=== PATIENT | male | born 1945 | race Asian ===

== ENCOUNTER 2016-12-04 14:56 | Inpatient (IN) | payer SELFPAY ==
[2016-11-29 14:55] LABS: HEMATOCRIT 34.7 % (40.0-51.0); HEMOGLOBIN 10.6 g/dL (13.6-17.8)
--- NOTE | ~2016-12-04 | OP ---
Record Of Operation [facility] [address] [place]. [address] NAME: LIYAH FARRELL : 47 STATUS : ADM IN PAT#: [id number] AGE: 70 ADM/REG DATE : 12/04/16 MR#: [id number] REPORT SERV DATE: 12/05/16 DICTATED BY: JUANJO PATEL III DATE: 12/05/16 REPORT STATUS : Draft TRANSCRIBED BY: MODMitali DATE: 12/05/16 DATE OF PROCEDURE: 12/05/2016 PROCEDURE: Right percutaneous nephrostolithotomy. PREOPERATIVE DIAGNOSIS: Right renal calculus. POSTOPERATIVE DIAGNOSIS: Right renal calculus. ANESTHESIA: General. SURGEON: Juanoj Patel M.D. DESCRIPTION OF PROCEDURE: Following induction of adequate general anesthesia, the patient was placed in the prone position. After all pressure points were padded, the extremities were extended. The arms were extended taking care to pad the shoulders and the neck. He was then prepped and draped. Through the indwelling nephrostomy tube, we did a retrograde showing a large filling defect. Superstiff wire was placed over the indwelling pigtail and indwelling ureteral catheter. A Brenda catheter was then placed and a second Superstiff was placed. An incision was made. The system was opacified and the pigtail removed. The balloon was placed inside the lower pole calyx and inflated and the sheath went in fairly easily and I was immediately looking at the stone. The stone was initially hard to fragment, however, he had a number of fragments that were vacuumed out of the renal pelvis. Gradually, the stone was broken down and several large fragments dropped down into the UPJ. This was a fairly acute angle but I was able to get down and bring them up and either pull them out or fragment them. I got the last visible fragment out of the renal pelvis. Examined the upper and middle pole calices. The one middle pole calyx I could not make the turn with the flexible scope. No stones were noted. The flexible cystoscope actually was placed almost all the way to the bladder with an obtuse 2 to 3 cm. No stones were noted. It was actually widely dilated. Next a retrograde was done showing no extravasation. A double-J stent was placed over a wire and a loop was left in the kidney and a loop in the bladder. Next a nephrostomy tube of 20-[place] was placed into the renal pelvis and inflated with 4.5 mL. A retrograde showed to be in good position. It was secured with 2 silk sutures and 1 extra suture was used to close the skin. The patient tolerated the procedure well. The final Superstiff wire, all wires were removed and a bulky dressing applied. The EBL was approximately 200 to 300. We will check an H and H in the recovery room and in the a.m. OB/MODL Juanjo Patel III, M.D. / [id number] Record Of [address] [address] NAME: LIYAH FARRELL : 47 STATUS : ADM IN LOCATED WITHIN [facility]#: [id number] AGE: 70 ADM/REG DATE : 12/04/16 MR#: [id number] REPORT SERV DATE: 12/05/16 DICTATED BY: JUANJO PATEL III DATE: 12/05/16 REPORT STATUS : Draft TRANSCRIBED BY: MODL DATE: 12/05/16 CC: Debbie Jennings III, MD
--- NOTE | ~2016-12-04 | DS ---
Discharge Summary [facility] [address] [facility] [place]. [address] NAME: LIYAH RODRÍGUEZ : 47 STATUS : ADM IN PAT#: [id number] AGE: 70 ADM/REG DATE : 12/04/16 MR#: [id number] REPORT SERV DATE: 12/08/16 DICTATED BY: JUANJO PATEL III DATE: 12/07/16 REPORT STATUS : Draft TRANSCRIBED BY: MODL DATE: 12/07/16 ADMISSION DATE: 12/04/2016 DISCHARGE DATE: DISCHARGE DIAGNOSIS: Right nephrolithiasis. PROCEDURE: Right percutaneous nephrostolithotomy. HISTORY: Mr. Rodríguez is a 70-year-old, [place] male, who has had a large stone in the right kidney for a number of years and began to have gross hematuria and pain. He was admitted for percutaneous nephrostolithotomy. His past medical history includes hypertension and stones. He has had a lithotripsy years ago. He has had no other surgery. He does not take lisinopril and has no allergies. He does not smoke or drink. He has no cardiac issues. REVIEW OF SYSTEMS: Unremarkable. HOSPITAL COURSE: The patient was taken to the operating room on 12/05/2016. Percutaneous procedure was done. He tolerated the procedure well. He had a fair amount of bleeding. His hemoglobin dropped from 11 to 10.6, but was stable. He was not symptomatic. His tube was clamped on 12/06/2016. He tolerated this well. The tube was removed on the 12/07/2016. His catheter will be removed today and if he voids well without problems today, we will discharge him home with a catheter being removed in 7 to 10 days. OB/MODL Juanjo Patel III, M.D. / [id number] CC: Debbie Jennings III, MD
--- NOTE | ~2016-12-04 | HP ---
History And Physical [place] [address] [facility] [place]. [address] NAME: LIYAH FARRELL : 47 STATUS : REG REF PAT#: [id number] AGE: 70 ADM/REG DATE : 12/04/16 MR#: [id number] REPORT SERV DATE: 12/05/16 DICTATED BY: JUANJO PATEL III DATE: 12/04/16 REPORT STATUS : Draft TRANSCRIBED BY: DORIAN DATE: 12/04/16 DATE OF ADMISSION: 12/04/2016 REASON FOR ADMISSION: Right renal calculus. HISTORY OF PRESENT ILLNESS: Patient is an [place] male, age 70. He has had a 2 cm stone thought to be in the right ureter for several years and refused treatment. He began having gross hematuria and flank pain; and a CT was done showing a 2 cm stone in the right renal pelvis, there was actually not much in the way. The pelvis was generous, but it was more of an extrarenal pelvis. Patient has had no fever or chills. His culture was negative from last week. His only medication was lisinopril for hypertension. He had a lithotripsy in 2007, but cannot remember exactly where or which side. FAMILY HISTORY: Unremarkable. SOCIAL HISTORY: He is , has six children. Does not smoke. Does not drink. REVIEW OF SYSTEMS: He denies chest pain, shortness of breath, GI complaints. He does have some back pain. He has had no weight loss. PHYSICAL EXAMINATION: GENERAL: He is alert and oriented. Mood and affect are normal. HEENT: Unremarkable. NECK: Supple. LUNGS: Clear. CARDIOVASCULAR: He had a regular rate and rhythm without murmur or gallop. There was no tenderness in either flank. His external genitalia and prostate had been examined previously. IMPRESSION: A sizable stone. I explained risks and complications of a percutaneous procedure to the son who conveyed it to the father along with the failure to access the stone with need for additional procedures, bleeding, infection, potential loss of kidney, which would be pretty fairly rare, and need for additional procedures. He will have a nephrostomy tube placed the day before the procedure and we will do the procedure in the operating room the following day. OB/MODL Juanjo Patel III, M.D. / [id number] History And Physical [address] [address] NAME: LIYAH FARRELL : 47 STATUS : REG REF PAT#: [id number] AGE: 70 ADM/REG DATE : 12/04/16 MR#: [id number] REPORT SERV DATE: 12/05/16 DICTATED BY: JUANJO PATEL III DATE: 12/04/16 REPORT STATUS : Draft TRANSCRIBED BY: MODL DATE: 12/04/16 CC: Juanjo Patel III, M.D.
[2016-12-04 13:03] LABS: HEMATOCRIT 35.3 % (40.0-51.0); PLATELET COUNT 247 10/3/uL (150-400)
[2016-12-04 13:10] LABS: INTERNATIONAL NORMAL RATI 1.1 UNITS (-); PARTIAL THROMBO TIME 32.9 SEC (22.5-37.2); PROTIME (NOT ORD) 14.5 SEC (12.0-14.5)
[2016-12-04 13:17] LABS: BUN (BLOOD UREA NITROGEN) 14 MG/DL (6-23); CHLORIDE, SERUM 105 MMOL/L (96-112); CO2 (CARBON DIOXIDE) 29 MMOL/L (24-34); CREATININE 1.07 MG/DL (0.70-1.30); GFR AFRICAN AMERICAN 82 ML/MIN (>=60); GFR NON AFRICAN AMERICAN 70 ML/MIN (>=60); GLUCOSE, SERUM 93 MG/DL (60-99); POTASSIUM, SERUM 4.1 MMOL/L (3.5-5.3); SODIUM, SERUM 140 MMOL/L (135-148)
[~2016-12-04 14:56] MED LIST: *DENIES; LEVAQUIN750 MG PO; NORCO1 TA1 PO; PRINZIDE1 TAB PO
[2016-12-05 03:50] LABS: HEMATOCRIT 32.3 % (40.0-51.0); HEMOGLOBIN 10.1 g/dL (13.6-17.8); MANUAL DIFF YES %; MEAN CORPUS HGB CONC 31.3 g/dL (32.0-36.0); MEAN CORPUSCULAR HEMOGLOB 24.8 pg (26.0-34.0); MEAN CORPUSCULAR VOLUME 79.2 fL (80-100); MEAN PLATELET VOLUME 8.3 fL (9.2-13.0); PLATELET COUNT 213 10/3/uL (150-400); RBC DISTRIBUTION WIDTH 17.4 % (12.0-16.0); RED CELL COUNT 4.08 10/6/uL (4.7-6.1); WHITE BLOOD CELLS 13.6 10/3/uL (4.5-10.5)
[2016-12-05 04:08] LABS: EOSINOPHILS 2 %; EOSINOPHILS ABSOLUTE (CALC) 0.27 10/3/uL (0.0-0.53); LYMPHOCYTES 62 %; LYMPHOCYTES ABSOLUTE (CALC) 8.43 10/3/uL (0.67-4.30); MONOCYTES 1 %; MONOCYTES ABSOLUTE (CALC) 0.14 10/3/uL (0.21-1.20); NEUTROPHILS ABSOLUTE (CALC) 4.76 10/3/uL (2.02-8.40); PLATELET ESTIMATE ADQ (ADEQUATE); SEGMENTED NEUTROPHIL (0) 35 %; TOTAL NUCLEATED CELLS 100
[2016-12-05 04:09] LABS: RBC MORPHOLOGY NORM (NORMAL)
[2016-12-05 16:55] LABS: HEMATOCRIT 32.6 % (40.0-51.0); HEMOGLOBIN 10.1 g/dL (13.6-17.8)
[2016-12-06 05:59] LABS: HEMOGLOBIN 9.8 g/dL (13.6-17.8); MEAN CORPUS HGB CONC 30.6 g/dL (32.0-36.0); MEAN CORPUSCULAR HEMOGLOB 24.4 pg (26.0-34.0); MEAN CORPUSCULAR VOLUME 79.8 fL (80-100); MEAN PLATELET VOLUME 8.5 fL (9.2-13.0); PLATELET COUNT 207 10/3/uL (150-400); RBC DISTRIBUTION WIDTH 17.6 % (12.0-16.0); RED CELL COUNT 4.01 10/6/uL (4.7-6.1); WHITE BLOOD CELLS 13.1 10/3/uL (4.5-10.5)
[2016-12-06 06:02] LABS: MANUAL DIFF YES %
[2016-12-06 06:12] LABS: CALCIUM, SERUM 8.3 MG/DL (8.5-10.4); CHLORIDE, SERUM 109 MMOL/L (96-112); CREATININE 0.84 MG/DL (0.70-1.30); GFR AFRICAN AMERICAN 104 ML/MIN (>=60); GFR NON AFRICAN AMERICAN 89 ML/MIN (>=60); GLUCOSE, SERUM 108 MG/DL (60-99); POTASSIUM, SERUM 3.9 MMOL/L (3.5-5.3); SODIUM, SERUM 139 MMOL/L (135-148)
[2016-12-06 06:14] LABS: BUN (BLOOD UREA NITROGEN) 7 MG/DL (6-23); CO2 (CARBON DIOXIDE) 23 MMOL/L (24-34)
[2016-12-06 06:50] LABS: BAND NEUTROPHILS 1 %; BASOPHILS 1 %; BASOPHILS ABSOLUTE (CALC) 0.13 10/3/uL (0.0-0.16); EOSINOPHILS 1 %; EOSINOPHILS ABSOLUTE (CALC) 0.13 10/3/uL (0.0-0.53); IMMATURE GRANS ABSOLUTE (CALC) 0.13 10/3/uL (0.0-0.11); LYMPHOCYTES 58 %; METAMYELOCYTES 1 %; MONOCYTES 2 %; MONOCYTES ABSOLUTE (CALC) 0.26 10/3/uL (0.21-1.20); NEUTROPHILS ABSOLUTE (CALC) 4.85 10/3/uL (2.02-8.40); SEGMENTED NEUTROPHIL (0) 36 %; TOTAL NUCLEATED CELLS 100
[2016-12-06 06:52] LABS: SMUDGE CELLS RARE
[2016-12-06 06:53] LABS: ANISOCYTOSIS 1+ (5-10/OIF) (0-5/OIF); PLATELET ESTIMATE ADQ (ADEQUATE); POLYCHROMASIA 1+ (2-5/OIF) (0-1/OIF)
[2016-12-06 16:13] LABS: HEMATOCRIT 30.7 % (40.0-51.0); HEMOGLOBIN 9.6 g/dL (13.6-17.8)
[2016-12-08 09:44] LABS: HEMATOCRIT 33.5 % (40.0-51.0); HEMOGLOBIN 10.5 g/dL (13.6-17.8); MEAN CORPUS HGB CONC 31.3 g/dL (32.0-36.0); MEAN CORPUSCULAR HEMOGLOB 24.9 pg (26.0-34.0); MEAN CORPUSCULAR VOLUME 79.4 fL (80-100); MEAN PLATELET VOLUME 8.6 fL (9.2-13.0); PLATELET COUNT 216 10/3/uL (150-400); RBC DISTRIBUTION WIDTH 17.9 % (12.0-16.0); RED CELL COUNT 4.22 10/6/uL (4.7-6.1); WHITE BLOOD CELLS 15.5 10/3/uL (4.5-10.5)
[2016-12-08 09:49] LABS: MANUAL DIFF YES %
[2016-12-08 10:16] LABS: LYMPHOCYTES 73 %; LYMPHOCYTES ABSOLUTE (CALC) 11.32 10/3/uL (0.67-4.30); MONOCYTES 3 %; MONOCYTES ABSOLUTE (CALC) 0.47 10/3/uL (0.21-1.20); NEUTROPHILS ABSOLUTE (CALC) 3.72 10/3/uL (2.02-8.40); SEGMENTED NEUTROPHIL (0) 24 %; TOTAL NUCLEATED CELLS 100
[2016-12-08 10:17] LABS: PLATELET ESTIMATE ADQ (ADEQUATE); RBC MORPHOLOGY NORM (NORMAL)
[2016-12-08 11:00] LABS: PATH REVIEW YES
[2016-12-08 16:12] LABS: ASCORBIC ACID (UR NOT ORDER) NEG (NEG); BILIRUBIN, URINE NEGATIVE (NEG); KETONE, URINE NEGATIVE (NEG); LEUKOCYTE ESTERASE(NOT OR SMALL (NEG); WBC (NOT ORDERED) (RFLEX) 48 (0-5)
[2016-12-09 06:30] LABS: HEMOGLOBIN 9.4 g/dL (13.6-17.8); MEAN CORPUS HGB CONC 31.4 g/dL (32.0-36.0); MEAN CORPUSCULAR HEMOGLOB 24.4 pg (26.0-34.0); MEAN CORPUSCULAR VOLUME 77.7 fL (80-100); MEAN PLATELET VOLUME 8.4 fL (9.2-13.0); PLATELET COUNT 208 10/3/uL (150-400); RBC DISTRIBUTION WIDTH 17.8 % (12.0-16.0); RED CELL COUNT 3.85 10/6/uL (4.7-6.1); WHITE BLOOD CELLS 13.1 10/3/uL (4.5-10.5)
[2016-12-09 06:31] LABS: HEMATOCRIT 29.9 % (40.0-51.0); MANUAL DIFF YES %
[2016-12-09 07:11] LABS: ANISOCYTOSIS 1+ (5-10/OIF) (0-5/OIF); EOSINOPHILS 4 %; EOSINOPHILS ABSOLUTE (CALC) 0.52 10/3/uL (0.0-0.53); LYMPHOCYTES 77 %; LYMPHOCYTES ABSOLUTE (CALC) 10.09 10/3/uL (0.67-4.30); MONOCYTES 5 %; MONOCYTES ABSOLUTE (CALC) 0.66 10/3/uL (0.21-1.20); NEUTROPHILS ABSOLUTE (CALC) 1.83 10/3/uL (2.02-8.40); PLATELET ESTIMATE ADQ (ADEQUATE); SEGMENTED NEUTROPHIL (0) 14 %; TOTAL NUCLEATED CELLS 100
[2016-12-09 07:12] LABS: HYPOCHROMIA 1+ (3-10/OIF) (0-2/OIF); POLYCHROMASIA 1+ (2-5/OIF) (0-1/OIF); SMUDGE CELLS FEW
[2016-12-09 07:13] LABS: HELMET CELLS OCC (0-2/OIF); TARGET CELLS OCC (1-2/OIF) (0-1/OIF)
[2016-12-09 11:46] LABS: PATH REVIEW SEE PATHOLOGY REPORT
[2016-12-10 18:54] LABS: STONE COMPOSITION TWO DNR (())
== END 2016-12-09 15:35 | disposition home or self-care (01) | DRG 661 ==
LOC: RADHOLD 14:56 → SSU1 16:12 → SDC/OF 12-05 12:21 → PACU 12-05 16:35 → 4SO 12-05 18:31
PROVIDERS: Urology
DX: N20.0 Calculus of kidney (principal); I10 Essential (primary) hypertension; R31.0 Gross hematuria; Z87.891 Personal history of nicotine dependence
CPT/HCPCS: 36415; 50433; 71010; 71020; 74000; 80048; 81001; 82365; 85014; 85018; 85025; 85049; 85610; 85730; 86850; 86900; 86901; 87086; 93005; A9270-GY; C1726; C1729; C1769; C1892; C1894; C2617; J2250; J2370; J2405; J2710; J3010; Q9967